=== PATIENT | male | born 2005 | race Caucasian/White ===

== ENCOUNTER 2024-04-07 16:46 | Emergency (ER) | payer MEDICAID, OTHER, SELFPAY ==
--- NOTE | ~2024-04-07 | XR_ITS ---
EXAMINATION: XR TOES, LEFT CLINICAL INFORMATION: Pain COMPARISON: None available. TECHNIQUE: 3 views of the left toes were obtained. FINDINGS: Very minimally displaced comminuted fracture of the diaphysis of the first proximal phalanx is seen. There is likely extension to the distal articular surface without significant step-off. There is soft tissue swelling about the toe. No other acute bony abnormality seen. XR/XR toe LT min 2V IMPRESSION: Very minimally displaced comminuted fracture of the diaphysis of the first proximal phalanx.
[2024-04-07 16:53] VITALS: BP 139/91; PULSE 98; RESP 16; TEMP 37.1; O2SAT 99; BMI 19.7
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
[2024-04-07 19:19] VITALS: BP 128/84; PULSE 87; RESP 16; TEMP 36.9; O2SAT 100
[2024-04-07 20:08] VITALS: BP 128/84; PULSE 87; RESP 16; TEMP 36.9; O2SAT 100
== END 2024-04-07 20:15 | disposition home or self-care (01) ==
PROVIDERS: Emergency Provider Internal Medicine
DX: S92.412A Displaced fracture of proximal phalanx of left great toe, initial encounter for closed fracture (principal); W22.09XA Striking against other stationary object, initial encounter; Y93.79 Activity, other specified sports and athletics; Y92.832 Beach as the place of occurrence of the external cause; Y99.9 Unspecified external cause status
CPT/HCPCS: 73660; 99283; 99284

== ENCOUNTER 2024-04-12 10:30 | Outpatient (AMB) | payer MEDICAID, SELFPAY ==
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
[2024-04-12 10:37] VITALS: BMI 21.1
== END 2024-04-12 10:58 | disposition home or self-care (01) ==
PROVIDERS: Visit Provider Physician Assistant
DX: S92.402A Displaced unspecified fracture of left great toe, initial encounter for closed fracture (principal)
CPT/HCPCS: 99203

== ENCOUNTER → 2024-04-12 10:30 | Outpatient (BNVA) | payer MEDICAID, SELFPAY | PROVIDERS: Visit Provider Physician Assistant | DX: S92.402A Displaced unspecified fracture of left great toe, initial encounter for closed fracture (principal) | CPT/HCPCS: 99212 ==